=== PATIENT | female | born 2000 | race Caucasian/White ===

== ENCOUNTER 2021-05-31 18:43 | Emergency (ER) | payer OTHER, MEDICAID ==
[2021-05-31] MEDS ORDERED: Cyclobenzaprine 10 MG TAB ONE (19:44)
[2021-05-31] MEDS ORDERED: Ketorolac Tromethamine 30 MG/ML VIAL ONE (19:44)
== END 2021-05-31 20:30 ==
LOC: CSHERS 18:43
DX: S20.214A Contusion of middle front wall of thorax, initial encounter (principal); S80.02XA Contusion of left knee, initial encounter; M62.838 Other muscle spasm; V89.2XXA Person injured in unspecified motor-vehicle accident, traffic, initial encounter
CPT/HCPCS: 71046; 72125; 93005; 96372; J1885